=== PATIENT | female | born 1950 | race African-American/Black ===

== ENCOUNTER 2021-04-07 07:40 | Inpatient (IN) ==
[~2021-04-07 07:40] MED LIST: ACETAMINOPHEN 500 MG TABLET PO ONE; GABAPENTIN 400 MG CAPSULE PO ONE
[2021-04-07 08:22] LABS: Basophils # 0.1 10*3/uL (0.0-0.2); Basophils % 0.8 % (0.0-0.8); Eosinophils # 0.3 10*3/uL (0.0-0.87); Eosinophils % 4.2 % (0.00-10.9); Immature Granulocytes % 0.7 %; Immature Granulocytes Absolute 0.05 #; Lymphocytes # 1.7 10*3/uL (1.4-4.0); Lymphocytes % 21.9 % (21.3-54.2); Mean Corpuscular HGB Conc 30.5 GM/DL (32-36); Mean Corpuscular Volume 82.3 FL (87-102); Mean Platelet Volume 9.7 FL (9.6-12.0); Monocytes % 6.6 % (1.7-12.7); Neutrophils % 65.8 % (38.7-73.9); Platelet Count 214 T/CUMM (130-400); Red Blood Count 2.31 MC/CUMM (3.8-5.5); Red Cell Distribution Width 17.8 % (9.3-17.3); White Blood Count 7.6 T/CUMM (4-12)
[2021-04-07 08:25] LABS: Hemoglobin 5.8 GM/DL (12.0-16.0)
[2021-04-07 08:27] LABS: PT Patient Result 11.4 SECS (10.5-12.0); Partial Thromboplastin Time 34.5 SECS (23.8-32.1)
[2021-04-07 08:45] LABS: Calcium 7.8 MG/DL (8.5-10.1); Osmolality,Calculated 288.8 MOS/KG (273-304); Potassium 5.5 MMOL/L (3.5-5.1)
[2021-04-07] MEDS: SODIUM CHLORIDE 0.9% 250 ML IV SCH (09:00)
[2021-04-07] MEDS ORDERED: BUPIVACAINE MPF 0.25% 30 ML VIAL ONE (09:29)
[2021-04-07] MEDS ORDERED: HEPARIN 5,000 UNIT/1 ML VIAL ONE (09:29)
[2021-04-07] MEDS ORDERED: LIDOCAINE 1%/EPI INJ 20 ML VIAL ONE (09:29)
[2021-04-07] MEDS ORDERED: FAMOTIDINE 20 MG TABLET PO ONE (09:30)
[2021-04-07] MEDS ORDERED: ONDANSETRON 4 MG/2 ML VIAL ONE (10:50)
[2021-04-07] MEDS ORDERED: KETAMINE 500 MG/10 ML VIAL ONE (10:50)
[2021-04-07] MEDS ORDERED: HEPARIN 10,000 UNIT/10 ML VIAL IV SCH (12:30)
[2021-04-07] MEDS ORDERED: SODIUM CHLORIDE 0.9% 1,000 ML IV PRN (13:29)
[2021-04-07] MEDS ORDERED: GLUCAGON 1 MG VIAL IM PRN (14:04)
[2021-04-07] MEDS ORDERED: ALBUTEROL 2.5 MG/3 ML NEB RESP TX PRN (14:04)
[2021-04-07] MEDS ORDERED: DOCUSATE SODIUM 100 MG CAPSULE PO PRN (14:04)
[2021-04-07] MEDS ORDERED: DEXTROSE 50% 25 GM/50 ML VIAL IV PRN (14:04)
[2021-04-07] MEDS ORDERED: ACETAMINOPHEN 325 MG TABLET PO PRN (14:04)
[2021-04-07 17:22] LABS: Basophils # 0.1 10*3/uL (0.0-0.2); Basophils % 0.6 % (0.0-0.8); Eosinophils # 0.2 10*3/uL (0.0-0.87); Eosinophils % 2.5 % (0.00-10.9); Hemoglobin 8.8 GM/DL (12.0-16.0); Immature Granulocytes % 0.5 %; Immature Granulocytes Absolute 0.04 #; Lymphocytes # 1.7 10*3/uL (1.4-4.0); Lymphocytes % 21.4 % (21.3-54.2); Mean Corpuscular HGB Conc 31.4 GM/DL (32-36); Mean Corpuscular Volume 83.6 FL (87-102); Mean Platelet Volume 9.8 FL (9.6-12.0); Monocytes % 6.3 % (1.7-12.7); Neutrophils % 68.7 % (38.7-73.9); Platelet Count 181 T/CUMM (130-400); Red Blood Count 3.35 MC/CUMM (3.8-5.5); Red Cell Distribution Width 16.6 % (9.3-17.3); White Blood Count 7.7 T/CUMM (4-12)
[2021-04-07 17:37] LABS: % Iron Saturation 31.1 % (18-50); Ferritin 849.1 ng/mL (8-252)
[2021-04-07 17:42] LABS: Risk Ratio 3.17; Thyroid Stimulating Hormone 2.07 uIU/ml (0.358-3.74); VLDL Cholesterol 13.4 MG/DL
[2021-04-07 17:49] LABS: Platelet Estimate Normal
[2021-04-07 17:50] LABS: Anisocytosis 2+; Hypochromasia 1+; Target Cells Few
[2021-04-07 17:51] LABS: Macrocytosis Slight
[2021-04-07 18:28] LABS: Sedimentation Rate-Westergren 120 MM/HR (0-30)
[2021-04-07 20:39] LABS: Folate 5.86 NG/ML (5.38-24.0); Vitamin B12 632 PG/ML (211-911)
[2021-04-08 04:52] LABS: Basophils # 0.1 10*3/uL (0.0-0.2); Basophils % 0.6 % (0.0-0.8); Eosinophils # 0.2 10*3/uL (0.0-0.87); Hematocrit 24.5 VOL% (35.7-47.0); Hemoglobin 7.7 GM/DL (12.0-16.0); Immature Granulocytes % 0.5 %; Immature Granulocytes Absolute 0.04 #; Lymphocytes # 1.2 10*3/uL (1.4-4.0); Lymphocytes % 15.1 % (21.3-54.2); Mean Corpuscular HGB Conc 31.4 GM/DL (32-36); Mean Corpuscular Volume 82.5 FL (87-102); Mean Platelet Volume 9.1 FL (9.6-12.0); Neutrophils % 72.8 % (38.7-73.9); Platelet Count 166 T/CUMM (130-400); Red Blood Count 2.97 MC/CUMM (3.8-5.5); Red Cell Distribution Width 16.5 % (9.3-17.3)
[2021-04-08 05:12] LABS: Calcium 7.9 MG/DL (8.5-10.1); Osmolality,Calculated 284.4 MOS/KG (273-304); Potassium 4.5 MMOL/L (3.5-5.1)
[2021-04-08] MEDS: SODIUM CHLORIDE 0.9% 250 ML IV SCH ×2 (07:58→22:51)
[2021-04-08 09:02] LABS: Hemoglobin A1 (Alkaline) 97.9 % (96.5-98.5); Hemoglobin A2 (Alkaline) 2.1 % (1.5-3.5)
[2021-04-08] MEDS: PANTOPRAZOLE 40 MG TABLET PO SCH ×2 (11:56→12:17)
[2021-04-08] MEDS: hydrALAZINE 20 MG/1 ML VIAL IV PRN (16:35)
[2021-04-09 06:16] LABS: Basophils % 0.3 % (0.0-0.8); Eosinophils # 0.3 10*3/uL (0.0-0.87); Hemoglobin 7.8 GM/DL (12.0-16.0); Immature Granulocytes % 0.4 %; Immature Granulocytes Absolute 0.03 #; Lymphocytes # 1.5 10*3/uL (1.4-4.0); Lymphocytes % 21.5 % (21.3-54.2); Mean Corpuscular HGB Conc 31.2 GM/DL (32-36); Mean Corpuscular Volume 83.1 FL (87-102); Mean Platelet Volume 10.7 FL (9.6-12.0); Monocytes % 8.5 % (1.7-12.7); Neutrophils % 65.3 % (38.7-73.9); Platelet Count 183 T/CUMM (130-400); Red Blood Count 3.01 MC/CUMM (3.8-5.5); Red Cell Distribution Width 16.5 % (9.3-17.3); White Blood Count 6.7 T/CUMM (4-12)
[2021-04-09 06:32] LABS: Calcium 8.1 MG/DL (8.5-10.1); Osmolality,Calculated 274.8 MOS/KG (273-304); Potassium 3.9 MMOL/L (3.5-5.1)
[2021-04-09] MEDS: PANTOPRAZOLE 40 MG TABLET PO SCH (09:07)
[2021-04-09] MEDS: hydrALAZINE 20 MG/1 ML VIAL IV PRN (09:07)
[2021-04-09 17:11] VITALS: BP 138/48
== END 2021-04-09 16:31 | disposition home or self-care (01) | DRG 673 ==
LOC: N.OR 07:40 → N.SDSINP 07:46 → SUATTDRO 14:05 → N.SDSINP 14:05 → N.3E 16:05
PROVIDERS: ADMIT Surgery; ATTEND Internal Medicine

== ENCOUNTER 2021-04-16 16:13 | Inpatient (IN) ==
[2021-04-16] MEDS ORDERED: ASPIRIN 325 MG TABLET PO STA (16:42)
[2021-04-16 16:58] LABS: Basophils % 0.2 % (0.0-0.8); Eosinophils # 0.7 10*3/uL (0.0-0.87); Eosinophils % 6.1 % (0.00-10.9); Hematocrit 23.2 VOL% (35.7-47.0); Hemoglobin 7.3 GM/DL (12.0-16.0); Immature Granulocytes % 0.6 %; Immature Granulocytes Absolute 0.07 #; Lymphocytes # 2.1 10*3/uL (1.4-4.0); Mean Corpuscular HGB Conc 31.5 GM/DL (32-36); Mean Corpuscular Volume 84.4 FL (87-102); Mean Platelet Volume 9.6 FL (9.6-12.0); Monocytes % 5.8 % (1.7-12.7); Neutrophils % 68.3 % (38.7-73.9); Platelet Count 151 T/CUMM (130-400); Red Blood Count 2.75 MC/CUMM (3.8-5.5); Red Cell Distribution Width 15.1 % (9.3-17.3); White Blood Count 11.2 T/CUMM (4-12)
[2021-04-16 17:16] LABS: Calcium 7.8 MG/DL (8.5-10.1); Osmolality,Calculated 270.1 MOS/KG (273-304)
[2021-04-16 17:17] LABS: INR 1.1; PT Patient Result 12.5 SECS (10.5-12.0); Partial Thromboplastin Time 64.5 SECS (23.8-32.1)
[2021-04-16 17:33] LABS: Potassium 2.4 MMOL/L (3.5-5.1)
[2021-04-16 17:51] LABS: Eosinophils 8 % (0-10); Lymphocytes 12 % (20-55); Segmented Neutrophils 76 % (50-85); Total Cells Counted 100
[2021-04-16 17:54] LABS: Target Cells 1+
[2021-04-16 17:55] LABS: Hypochromasia 2+; Spherocytes 1+
[2021-04-16 17:56] LABS: Anisocytosis 2+
[2021-04-16 17:58] LABS: Platelet Estimate Normal; Schistocytes Few
[2021-04-16] MEDS ORDERED: GLUCAGON 1 MG VIAL IM PRN (21:17)
[2021-04-16] MEDS ORDERED: ONDANSETRON 4 MG/2 ML VIAL IV PRN (21:22)
[2021-04-16] MEDS ORDERED: hydrALAZINE 20 MG/1 ML VIAL IV PRN (21:22)
[2021-04-16] MEDS ORDERED: ACETAMINOPHEN 325 MG TABLET PO PRN (21:22)
[2021-04-16] MEDS ORDERED: SIMETHICONE CHEW 125 MG TABLET PO PRN (21:22)
[2021-04-16] MEDS ORDERED: POTASSIUM CHLORIDE 20 MEQ PACK PO STA (21:38)
[2021-04-16] MEDS ORDERED: PANTOPRAZOLE 40 MG VIAL IV STA (21:39)
[2021-04-16] MEDS ORDERED: DEXTROSE 50% 25 GM/50 ML SYRINGE IV PRN (21:41)
[2021-04-16] MEDS ORDERED: MAGNESIUM SULF RIDER 4 GM/100 ML PREMIX IV STA (21:49)
[2021-04-16 22:18] LABS: Hematocrit 21.6 VOL% (35.7-47.0); Hemoglobin 6.7 GM/DL (12.0-16.0)
[2021-04-17] MEDS ORDERED: SODIUM CHLORIDE 0.9% 1,000 ML IV PRN
[2021-04-17] MEDS: LEVOTHYROXINE 50 MCG TABLET PO SCH (06:24)
[2021-04-17] MEDS ORDERED: ALBUTEROL 2.5 MG/3 ML NEB RESP TX PRN (07:00)
[2021-04-17] MEDS ORDERED: POTASSIUM CHLORIDE 20 MEQ TABLET PO PRN (07:13)
[2021-04-17] MEDS ORDERED: POTASSIUM CHLORIDE RIDER 10 MEQ/100 ML PREMIX IV PRN (07:13)
[2021-04-17] MEDS ORDERED: MAGNESIUM SULF RIDER 4 GM/100 ML PREMIX IV PRN (07:13)
[2021-04-17] MEDS ORDERED: MAGNESIUM SULF RIDER 2 GM/50 ML PREMIX IV PRN (07:13)
[2021-04-17] MEDS ORDERED: INSULIN LISPRO 100 UNIT/ML SUBCUT SCH (07:30)
[2021-04-17 07:42] LABS: Basophils % 0.4 % (0.0-0.8); Eosinophils # 0.9 10*3/uL (0.0-0.87); Eosinophils % 10.2 % (0.00-10.9); Hemoglobin 7.5 GM/DL (12.0-16.0); Immature Granulocytes % 0.6 %; Immature Granulocytes Absolute 0.05 #; Lymphocytes # 1.5 10*3/uL (1.4-4.0); Lymphocytes % 17.9 % (21.3-54.2); Mean Corpuscular HGB Conc 31.3 GM/DL (32-36); Mean Corpuscular Volume 83.6 FL (87-102); Mean Platelet Volume 11.3 FL (9.6-12.0); Monocytes % 7.3 % (1.7-12.7); Neutrophils % 63.6 % (38.7-73.9); Platelet Count 167 T/CUMM (130-400); Red Blood Count 2.87 MC/CUMM (3.8-5.5); Red Cell Distribution Width 14.8 % (9.3-17.3); White Blood Count 8.5 T/CUMM (4-12)
[2021-04-17 07:46] LABS: Basophils % 0.2 % (0.0-0.8); Eosinophils # 0.9 10*3/uL (0.0-0.87); Eosinophils % 10.7 % (0.00-10.9); Hematocrit 23.8 VOL% (35.7-47.0); Hemoglobin 7.6 GM/DL (12.0-16.0); Immature Granulocytes % 0.7 %; Immature Granulocytes Absolute 0.06 #; Lymphocytes # 1.5 10*3/uL (1.4-4.0); Lymphocytes % 17.7 % (21.3-54.2); Mean Corpuscular HGB Conc 31.9 GM/DL (32-36); Mean Corpuscular Volume 83.5 FL (87-102); Mean Platelet Volume 9.8 FL (9.6-12.0); Monocytes % 6.4 % (1.7-12.7); Neutrophils % 64.3 % (38.7-73.9); Platelet Count 152 T/CUMM (130-400); Red Blood Count 2.85 MC/CUMM (3.8-5.5); Red Cell Distribution Width 14.8 % (9.3-17.3); White Blood Count 8.4 T/CUMM (4-12)
[2021-04-17 08:08] LABS: Calcium 7.4 MG/DL (8.5-10.1); Osmolality,Calculated 270.2 MOS/KG (273-304); Potassium 3.4 MMOL/L (3.5-5.1); Risk Ratio 3.5; VLDL Cholesterol 15.4 MG/DL
[2021-04-17 08:09] LABS: Anisocytosis 1+; Band Neutrophils 5 % (0-10); Eosinophils 13 % (0-10); Hypochromasia 1+; Lymphocytes 18 % (20-55); Macrocytosis 1+; Platelet Estimate Normal; Segmented Neutrophils 56 % (50-85); Target Cells Few; Total Cells Counted 100
[2021-04-17 08:10] LABS: Basophilic Stippling Slight
[2021-04-17 08:11] LABS: % Iron Saturation 96.4 % (18-50); Ferritin 1154.1 ng/mL (8-252)
[2021-04-17 08:13] LABS: Anisocytosis 1+; Band Neutrophils 5 % (0-10); Basophilic Stippling Slight; Eosinophils 13 % (0-10); Hypochromasia 1+; Lymphocytes 18 % (20-55); Macrocytosis 1+; Platelet Estimate Normal; Segmented Neutrophils 56 % (50-85); Target Cells Few; Total Cells Counted 100
[2021-04-17] MEDS: NYSTATIN POWDER 15 GM BOTTLE TOP SCH ×3 (08:22→20:33)
[2021-04-17] MEDS: OXYBUTYNIN 5 MG TABLET PO SCH (08:23)
[2021-04-17] MEDS: DILTIAZEM CD 180 MG CAPSULE PO SCH (08:23)
[2021-04-17] MEDS: DOCUSATE SODIUM 100 MG CAPSULE PO SCH ×2 (08:23→20:33)
[2021-04-17] MEDS: PANTOPRAZOLE 40 MG TABLET PO SCH (08:24)
[2021-04-17] MEDS: MULTIVITAMIN (CENTRUM) TABLET PO SCH (08:24)
[2021-04-17] MEDS: CITALOPRAM 20 MG TABLET PO SCH (08:24)
[2021-04-17 08:31] LABS: Folate 5.98 NG/ML (5.38-24.0); Vitamin B12 486 PG/ML (211-911)
[2021-04-17 08:55] LABS: Sedimentation Rate-Westergren 100 MM/HR (0-30)
[2021-04-17] MEDS ORDERED: PANTOPRAZOLE 40 MG VIAL IV SCH (09:00)
[2021-04-17] MEDS: HEPARIN DRIP 25,000 UNITS/500 ML PREMIX IV SCH (13:49)
[2021-04-17] MEDS: ALBUTEROL/IPRATROPIUM 3 ML NEB RESP TX SCH ×2 (15:30→19:00)
[2021-04-17] MEDS: CETIRIZINE 10 MG TABLET PO SCH (20:33)
[2021-04-18] MEDS: ALBUTEROL/IPRATROPIUM 3 ML NEB RESP TX SCH ×6 (00:50→23:32)
[2021-04-18 03:04] LABS: Basophils % 0.4 % (0.0-0.8); Eosinophils # 0.8 10*3/uL (0.0-0.87); Hematocrit 26.6 VOL% (35.7-47.0); Hemoglobin 8.7 GM/DL (12.0-16.0); Immature Granulocytes % 0.4 %; Immature Granulocytes Absolute 0.03 #; Lymphocytes # 1.5 10*3/uL (1.4-4.0); Lymphocytes % 20.7 % (21.3-54.2); Mean Corpuscular HGB Conc 32.7 GM/DL (32-36); Mean Corpuscular Volume 84.2 FL (87-102); Mean Platelet Volume 11.1 FL (9.6-12.0); Monocytes % 8.2 % (1.7-12.7); Neutrophils % 59.3 % (38.7-73.9); Platelet Count 177 T/CUMM (130-400); Red Blood Count 3.16 MC/CUMM (3.8-5.5)
[2021-04-18 03:20] LABS: Calcium 7.4 MG/DL (8.5-10.1); Osmolality,Calculated 275.8 MOS/KG (273-304); Potassium 3.5 MMOL/L (3.5-5.1)
[2021-04-18] MEDS: LEVOTHYROXINE 50 MCG TABLET PO SCH (05:53)
[2021-04-18] MEDS: HEPARIN DRIP 25,000 UNITS/500 ML PREMIX IV SCH ×2 (07:38→19:46)
[2021-04-18] MEDS: DOCUSATE SODIUM 100 MG CAPSULE PO SCH ×2 (08:48→21:17)
[2021-04-18] MEDS: DILTIAZEM CD 180 MG CAPSULE PO SCH (08:48)
[2021-04-18] MEDS: OXYBUTYNIN 5 MG TABLET PO SCH (08:48)
[2021-04-18] MEDS: MULTIVITAMIN (CENTRUM) TABLET PO SCH (08:48)
[2021-04-18] MEDS: PANTOPRAZOLE 40 MG TABLET PO SCH (08:48)
[2021-04-18] MEDS: CITALOPRAM 20 MG TABLET PO SCH (08:48)
[2021-04-18] MEDS: NYSTATIN POWDER 15 GM BOTTLE TOP SCH ×3 (08:49→21:17)
[2021-04-18] MEDS: diphenhydrAMINE CAP 25 MG CAPSULE PO PRN (17:42)
[2021-04-18] MEDS: CETIRIZINE 10 MG TABLET PO SCH (21:17)
[2021-04-19 04:48] LABS: Basophils % 0.5 % (0.0-0.8); Eosinophils # 0.2 10*3/uL (0.0-0.87); Eosinophils % 5.1 % (0.00-10.9); Hematocrit 35.7 VOL% (35.7-47.0); Hemoglobin 11.3 GM/DL (12.0-16.0); Immature Granulocytes % 1.2 %; Immature Granulocytes Absolute 0.05 #; Lymphocytes # 0.6 10*3/uL (1.4-4.0); Lymphocytes % 12.7 % (21.3-54.2); Mean Corpuscular HGB Conc 31.7 GM/DL (32-36); Mean Corpuscular Volume 85.2 FL (87-102); Mean Platelet Volume 10.6 FL (9.6-12.0); Monocytes % 3.2 % (1.7-12.7); Neutrophils % 77.3 % (38.7-73.9); Platelet Count 223 T/CUMM (130-400); Red Blood Count 4.19 MC/CUMM (3.8-5.5); Red Cell Distribution Width 15.5 % (9.3-17.3); White Blood Count 4.3 T/CUMM (4-12)
[2021-04-19 05:08] LABS: Calcium 7.8 MG/DL (8.5-10.1); Osmolality,Calculated 278.7 MOS/KG (273-304); Potassium 4.1 MMOL/L (3.5-5.1)
[2021-04-19 05:15] LABS: Anisocytosis 1+; Band Neutrophils 3 % (0-10); Eosinophils 5 % (0-10); Hypochromasia 1+; Lymphocytes 7 % (20-55); Macrocytosis 1+; Segmented Neutrophils 79 % (50-85); Total Cells Counted 100
[2021-04-19 05:16] LABS: Ovalocytes Slight; Platelet Estimate Normal; Target Cells Slight; Tear Drop Cells Slight
[2021-04-19] MEDS: LEVOTHYROXINE 50 MCG TABLET PO SCH (06:12)
[2021-04-19] MEDS: HEPARIN DRIP 25,000 UNITS/500 ML PREMIX IV SCH ×2 (06:12→15:44)
[2021-04-19] MEDS ORDERED: HEPARIN 10,000 UNIT/10 ML VIAL IV SCH (09:45)
[2021-04-19 09:57] LABS: Hemoglobin A1 (Alkaline) 98.2 % (96.5-98.5); Hemoglobin A2 (Alkaline) 1.8 % (1.5-3.5)
[2021-04-19] MEDS: ALBUTEROL/IPRATROPIUM 3 ML NEB RESP TX SCH ×4 (10:07→19:55)
[2021-04-19] MEDS: DOCUSATE SODIUM 100 MG CAPSULE PO SCH ×2 (12:37→22:26)
[2021-04-19] MEDS: PANTOPRAZOLE 40 MG TABLET PO SCH (12:37)
[2021-04-19] MEDS: DILTIAZEM CD 180 MG CAPSULE PO SCH (12:37)
[2021-04-19] MEDS: MULTIVITAMIN (CENTRUM) TABLET PO SCH (12:37)
[2021-04-19] MEDS: OXYBUTYNIN 5 MG TABLET PO SCH (12:37)
[2021-04-19] MEDS: CITALOPRAM 20 MG TABLET PO SCH (12:37)
[2021-04-19] MEDS: NYSTATIN POWDER 15 GM BOTTLE TOP SCH ×3 (12:38→22:26)
[2021-04-19] MEDS: diphenhydrAMINE CAP 25 MG CAPSULE PO PRN (15:43)
[2021-04-19] MEDS: CETIRIZINE 10 MG TABLET PO SCH (22:26)
[2021-04-20] MEDS: ALBUTEROL/IPRATROPIUM 3 ML NEB RESP TX SCH ×5 (00:53→20:23)
[2021-04-20 01:11] LABS: Basophils % 0.3 % (0.0-0.8); Eosinophils # 0.3 10*3/uL (0.0-0.87); Eosinophils % 5.1 % (0.00-10.9); Hematocrit 33.5 VOL% (35.7-47.0); Hemoglobin 10.5 GM/DL (12.0-16.0); Immature Granulocytes % 0.7 %; Immature Granulocytes Absolute 0.05 #; Lymphocytes # 1.8 10*3/uL (1.4-4.0); Lymphocytes % 26.5 % (21.3-54.2); Mean Corpuscular HGB Conc 31.3 GM/DL (32-36); Mean Corpuscular Volume 86.3 FL (87-102); Mean Platelet Volume 9.9 FL (9.6-12.0); Monocytes % 6.3 % (1.7-12.7); Neutrophils % 61.1 % (38.7-73.9); Platelet Count 142 T/CUMM (130-400); Red Blood Count 3.88 MC/CUMM (3.8-5.5); Red Cell Distribution Width 15.7 % (9.3-17.3); White Blood Count 6.7 T/CUMM (4-12)
[2021-04-20 01:30] LABS: Calcium 7.7 MG/DL (8.5-10.1); Osmolality,Calculated 269.2 MOS/KG (273-304); Potassium 4.2 MMOL/L (3.5-5.1)
[2021-04-20 02:01] LABS: Nucleated Red Blood Cells 1 (0-5); Total Cells Counted 100
[2021-04-20 02:02] LABS: Eosinophils 6 % (0-10); Lymphocytes 20 % (20-55); Segmented Neutrophils 65 % (50-85)
[2021-04-20] MEDS: HEPARIN DRIP 25,000 UNITS/500 ML PREMIX IV SCH (03:27)
[2021-04-20] MEDS: LEVOTHYROXINE 50 MCG TABLET PO SCH (07:09)
[2021-04-20] MEDS: PANTOPRAZOLE 40 MG TABLET PO SCH (09:10)
[2021-04-20] MEDS: DOCUSATE SODIUM 100 MG CAPSULE PO SCH ×2 (09:10→21:38)
[2021-04-20] MEDS: diphenhydrAMINE CAP 25 MG CAPSULE PO PRN (09:11)
[2021-04-20] MEDS: NYSTATIN POWDER 15 GM BOTTLE TOP SCH ×3 (09:11→21:38)
[2021-04-20] MEDS: MULTIVITAMIN (CENTRUM) TABLET PO SCH (09:11)
[2021-04-20] MEDS: OXYBUTYNIN 5 MG TABLET PO SCH (09:11)
[2021-04-20] MEDS: CITALOPRAM 20 MG TABLET PO SCH (09:11)
[2021-04-20] MEDS: DILTIAZEM CD 180 MG CAPSULE PO SCH (09:11)
[2021-04-20] MEDS ORDERED: SKIN HEALING OINT (AQUAPHOR) 50 GM TUBE TOP PRN (12:06)
[2021-04-20] MEDS: ZINC OXIDE PASTE 113 GM TUBE TOP SCH ×2 (16:52→21:39)
[2021-04-20] MEDS ORDERED: PHENOL 1.4% THROAT SPRAY 177 ML BOTTLE PO PRN (17:03)
[2021-04-20] MEDS: CLOTRIMAZOLE 1% CREAM 15 GM TUBE TOP SCH (21:38)
[2021-04-20] MEDS: CETIRIZINE 10 MG TABLET PO SCH (21:38)
[2021-04-20] MEDS: APIXABAN 2.5 MG TABLET PO SCH (21:38)
[2021-04-21] MEDS: ALBUTEROL/IPRATROPIUM 3 ML NEB RESP TX SCH ×5 (00:35→14:00)
[2021-04-21 00:50] LABS: Basophils % 0.3 % (0.0-0.8); Eosinophils # 0.4 10*3/uL (0.0-0.87); Eosinophils % 5.1 % (0.00-10.9); Hematocrit 25.7 VOL% (35.7-47.0); Immature Granulocytes % 0.8 %; Immature Granulocytes Absolute 0.06 #; Lymphocytes # 1.9 10*3/uL (1.4-4.0); Lymphocytes % 24.8 % (21.3-54.2); Mean Corpuscular HGB Conc 31.5 GM/DL (32-36); Mean Corpuscular Volume 85.1 FL (87-102); Mean Platelet Volume 10.4 FL (9.6-12.0); Monocytes % 7.7 % (1.7-12.7); Neutrophils % 61.3 % (38.7-73.9); Platelet Count 147 T/CUMM (130-400); Red Blood Count 3.02 MC/CUMM (3.8-5.5); White Blood Count 7.8 T/CUMM (4-12)
[2021-04-21 00:57] LABS: Calcium 7.7 MG/DL (8.5-10.1); Osmolality,Calculated 279.5 MOS/KG (273-304); Potassium 4.2 MMOL/L (3.5-5.1)
[2021-04-21 01:00] LABS: Hemoglobin 8.1 GM/DL (12.0-16.0)
[2021-04-21 01:15] LABS: Eosinophils 1 % (0-10); Hypochromasia 1+; Lymphocytes 22 % (20-55); Microcytosis Slight; Platelet Estimate Normal; Segmented Neutrophils 73 % (50-85); Target Cells Few; Total Cells Counted 100
[2021-04-21] MEDS: LEVOTHYROXINE 50 MCG TABLET PO SCH (06:12)
[2021-04-21] MEDS: MULTIVITAMIN (CENTRUM) TABLET PO SCH (08:05)
[2021-04-21] MEDS: CITALOPRAM 20 MG TABLET PO SCH (08:05)
[2021-04-21] MEDS: NYSTATIN POWDER 15 GM BOTTLE TOP SCH ×2 (08:05→15:26)
[2021-04-21] MEDS: APIXABAN 2.5 MG TABLET PO SCH (08:05)
[2021-04-21] MEDS: DOCUSATE SODIUM 100 MG CAPSULE PO SCH (08:05)
[2021-04-21] MEDS: PANTOPRAZOLE 40 MG TABLET PO SCH (08:05)
[2021-04-21] MEDS: OXYBUTYNIN 5 MG TABLET PO SCH (08:05)
[2021-04-21] MEDS: DILTIAZEM CD 180 MG CAPSULE PO SCH (08:06)
[2021-04-21] MEDS: CLOTRIMAZOLE 1% CREAM 15 GM TUBE TOP SCH (08:06)
[2021-04-21] MEDS: ZINC OXIDE PASTE 113 GM TUBE TOP SCH (08:06)
[2021-04-21] MEDS: diphenhydrAMINE CAP 25 MG CAPSULE PO PRN (08:10)
[2021-04-21 16:09] VITALS: BP 127/72
== END 2021-04-21 16:30 | disposition home health service (06) | DRG 682 ==
LOC: EDBD → EDUNIT# → N.ED 16:13 → N.EDINP 16:13 → N.TELEN 04-17 00:59 → SUATTDRO 04-17 07:08
PROVIDERS: ADMIT Internal Medicine; ATTEND Emergency Medicine